=== PATIENT | male | born 1990 | race Caucasian/White ===

== ENCOUNTER 2016-07-27 14:14 | Emergency (ER) | payer OTHER ==
[2016-07-27 14:32] LABS: HEMOGLOBIN 14.2 gm/dl (14.0-17.5); RED BLOOD COUNT 5.06 M/UL (4.20-5.50); WHITE BLOOD COUNT 8.9 K/UL (4.5-11.0)
[2016-07-27 14:55] LABS: BUN/CREATININE RATIO 19 (0-10)
== END 2016-07-27 20:10 | disposition home or self-care (01) ==
LOC: ER1 14:14
PROVIDERS: Preventive Medicine Occupational Medicine
DX: F15.10 Other stimulant abuse, uncomplicated (principal); F17.200 Nicotine dependence, unspecified, uncomplicated
CPT/HCPCS: 51701; 70450; 80053; 80307; 81001; 82150; 83690; 85025; 93005; 96374; 96375; 99284; G0480; J2310; J2405

== ENCOUNTER 2020-12-06 18:31 | Emergency (ER) | payer OTHER ==
[~2020-12-06 18:31] MED LIST: KEFLEX CAP 500500 MG PO
[2020-12-06 20:05] LABS: HEMOGLOBIN 15.7 gm/dl (14.0-17.5); RED BLOOD COUNT 5.62 M/UL (4.20-5.50); WHITE BLOOD COUNT 7.8 K/UL (4.5-11.0)
[2020-12-06 20:26] LABS: BUN/CREATININE RATIO 18 (0-10)
[2020-12-06] MEDS ORDERED: ZOFRAN ODT 4 MG4 MG SL (21:00)
[2020-12-06] MEDS ORDERED: FLOMAX 0.4 MG0.4 MG PO (21:00)
[2020-12-06] MEDS ORDERED: HYDROCODON-ACE1 EAC4 PO (21:00)
[2020-12-06] MEDS ORDERED: TORADOL 10 MG T10 MG PO (21:00)
== END 2020-12-06 21:26 | disposition home or self-care (01) ==
LOC: ER1 18:31
PROVIDERS: Physician Assistant
DX: N13.2 Hydronephrosis with renal and ureteral calculous obstruction (principal); F17.210 Nicotine dependence, cigarettes, uncomplicated
CPT/HCPCS: 80053; 81001; 83690; 85025; 87086; 96374; 96375; 99284; J1885; J2270; J2405; Q9967